=== PATIENT | female | born 1955 | race African-American/Black ===

== ENCOUNTER 2020-01-23 18:12 | Emergency (ER) | payer MEDICARE ==
[2020-01-23] MEDS ORDERED: HYDROcodone/Acetaminophen 10/325 mg Tablet ONE (20:51)
--- NOTE | 2020-01-23 21:38 | RAD ---
EXAM: RIGHT RIBS TWO VIEWS CHEST ONE VIEW: 01/23/20 HISTORY: Injury from a fall. Pain. FINDINGS: Arthrosis and degenerative changes noted of the right AC joint and glenohumeral joint. No evidence fo r acute fracture or dislocation. No pneumothorax or pleural effusion. IMPRESSION: No convincing evidence for acute rib fracture. No pneumothorax or pleural effusion. 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 POS: RRE
== END 2020-01-23 21:59 | disposition home or self-care (01) ==
LOC: ERS 18:12
DX: B02.9 Zoster without complications (principal); M54.6 Pain in thoracic spine; E78.5 Hyperlipidemia, unspecified; E11.9 Type 2 diabetes mellitus without complications; M19.90 Unspecified osteoarthritis, unspecified site; I10 Essential (primary) hypertension; Z79.899 Other long term (current) drug therapy; Z79.84 Long term (current) use of oral hypoglycemic drugs